=== PATIENT | male | born 1940 | race Two or more races ===

== ENCOUNTER 2019-06-02 09:35 | Emergency (ER) | payer SELFPAY ==
[2019-06-02 12:07] VITALS: BP 127/37
== END 2019-06-02 14:18 | disposition home or self-care (01) ==
LOC: EDBD 09:35 → EDUNIT# 09:35 → ER 09:43
DX: S51.812A Laceration without foreign body of left forearm, initial encounter (principal); S00.93XA Contusion of unspecified part of head, initial encounter; F03.90 Unspecified dementia, unspecified severity, without behavioral disturbance, psychotic disturbance, mood disturbance, and anxiety; W19.XXXA Unspecified fall, initial encounter; Y93.89 Activity, other specified; Y92.89 Other specified places as the place of occurrence of the external cause; Y99.8 Other external cause status; E11.9 Type 2 diabetes mellitus without complications; E78.5 Hyperlipidemia, unspecified; I10 Essential (primary) hypertension
CPT/HCPCS: 70450; 73090; 73120

== ENCOUNTER 2019-09-08 20:36 | Emergency (ER) | payer OTHER ==
[~2019-09-08] VITALS: Ht 185.4 cm; Wt 108.9 kg
[2019-09-08 21:22] LABS: Basophils # (auto) 0 uL; Basophils % (auto) 0.4 % (0.0-2.0); Eosinophils # (auto) 0.3 uL; Eosinophils % (auto) 3.9 % (0.0-7.0); Hemoglobin 13.7 g/dL (13.5-17.5); Lymphocytes # (auto) 0.7 uL; Lymphocytes % (auto) 7.7 % (10.0-50.0); Mean Corpuscular Hemoglobin 31.1 pg (28.0-32.0); Mean Corpuscular Hgb Conc. 33.4 g/dL (32.0-36.0); Mean Corpuscular Volume 93.3 fL (80.0-100.0); Monocytes # (auto) 0.6 uL; Monocytes % (auto) 6.8 % (0.0-12.0); Neutrophils % (auto) 81.2 % (37.0-80.0); Nucleated Red Blood Cells % 0.1 %; Platelet Count (auto) 128 10^3/uL (140-450); Red Blood Cells 4.39 10^6/uL (4.5-5.90); Red Cell Distribution Width 14.6 % (11.8-14.3); White Blood Cell 8.6 10^3/uL (4.4-10.8)
[2019-09-08 21:37] LABS: INR 1.02 (0.9-1.15); Partial Thromboplastin Time 28.5 sec (23.64-32.05)
[2019-09-08 21:42] LABS: Albumin 3.1 g/dL (3.4-5.0); Anion Gap 6 (5-15); BUN/Creatinine Ratio 16.9; Blood Urea Nitrogen 30 mg/dL (7-18); Calcium 9.2 mg/dL (8.5-10.1); Carbon Dioxide 26 mmol/L (21-32); Chloride 107 mmol/L (98-107); GFR African American 48 mL/min; GFR Non-African American 39 mL/min; Glucose 131 mg/dL (74-106); Potassium 4.8 mmol/L (3.5-5.1); Sodium 139 mmol/L (136-145)
[2019-09-08 21:47] LABS: Alanine Aminotransferase 38 U/L (16-61); Alkaline Phosphatase 98 U/L (45-117); Aspartate Aminotransferase 108 U/L (15-37); Bilirubin, Total 0.5 mg/dL (0.2-1.0); Total Protein 7.5 g/dL (6.4-8.2)
[2019-09-08 23:03] VITALS: BP 101/53
[2019-09-09] MEDS ORDERED: LORazepam 2MG/ML-1ML VIAL IM ONE (03:45)
== END 2019-09-09 04:52 | disposition home or self-care (01) ==
LOC: EDBD 20:36 → ER 20:36
DX: S70.02XA Contusion of left hip, initial encounter (principal); S70.01XA Contusion of right hip, initial encounter; E11.9 Type 2 diabetes mellitus without complications; E78.5 Hyperlipidemia, unspecified; I10 Essential (primary) hypertension; R93.0 Abnormal findings on diagnostic imaging of skull and head, not elsewhere classified; Z95.1 Presence of aortocoronary bypass graft; W01.0XXA Fall on same level from slipping, tripping and stumbling without subsequent striking against object, initial encounter; Y93.89 Activity, other specified; Y92.89 Other specified places as the place of occurrence of the external cause; Y99.8 Other external cause status
CPT/HCPCS: 36415; 70450; 71045; 72125; 73502; 80053; 84484; 85025; 85610; 85730; 96372; 99284; J2060

== ENCOUNTER 2021-01-03 09:36 | Inpatient (IN) | payer OTHER ==
[2021-01-03] VITALS (7 sets, daily range): BP systolic 50–106; BP diastolic 15–60
[~2021-01-03] VITALS: Ht 175.3 cm; Wt 86.2 kg
[2021-01-03] MEDS ORDERED: MIDAZOLAM DRIP 50 mg/50mL 50 ML IV ONE (09:37)
[2021-01-03] MEDS ORDERED: ETOMIDATE (2MG/ML) 20ML VIAL IV ONE ×2 (09:37→10:00)
[2021-01-03] MEDS ORDERED: SUCCINYLCHOLINE CHLORIDE 20 MG/ML 10ML VIAL IV ONE ×2 (09:38→10:00)
[2021-01-03] MEDS ORDERED: NOREPINEPHRINE 8 MG/250ML KIT 250 ML IV ONE ×2 (09:38→09:46)
[2021-01-03] MEDS: MIDAZOLAM DRIP 50 mg/50mL 50 ML IV SCH ×2 (09:49→20:00)
[2021-01-03] MEDS ORDERED: NOREPINEPHRINE 8 MG/250ML KIT 250 ML IV SCH (10:00)
[2021-01-03] MEDS ORDERED: PROPOFOL 100 ML IV ONE (10:05)
[2021-01-03] MEDS ORDERED: PROPOFOL 100 ML IV SCH (10:15)
[2021-01-03] MEDS ORDERED: ACETAMINOPHEN 650 mg PER 20.3 mL UD GT ONE (10:20)
[2021-01-03 10:27] LABS: Lactic Acid w/Reflex 4.7 mmol/L (0.4-2.0)
[2021-01-03] MEDS ORDERED: CLINDAMYCIN 600MG IV 50 ML IV ONE (10:30)
[2021-01-03] MEDS ORDERED: cefTRIAXone 1GM/50ML D5W 50 ML IV ONE (10:30)
[2021-01-03] MEDS ORDERED: fentaNYL Drip 2500mCg/250mlNS 250 ML IV ONE (10:36)
[2021-01-03 10:40] LABS: Basophils # (auto) 0 10 ^3/uL (0-0.2); Basophils % (auto) 0.1 % (0.0-2.0); Eosinophils # (auto) 0 10 ^3/uL (0-0.8); Hematocrit 41.4 % (41.0-53.0); Hemoglobin 13.6 g/dL (13.5-17.5); Lymphocytes # (auto) 0.9 10 ^3/uL (0.4-5.4); Lymphocytes % (auto) 4.3 % (10.0-50.0); Mean Corpuscular Hemoglobin 29.3 pg (28.0-32.0); Mean Corpuscular Hgb Conc. 32.8 g/dL (32.0-36.0); Mean Corpuscular Volume 89.4 fL (80.0-100.0); Monocytes # (auto) 1.5 10 ^3/uL (0-1.3); Monocytes % (auto) 7.1 % (0.0-12.0); Neutrophils # (auto) 18.7 10 ^3/uL (1.6-8.6); Neutrophils % (auto) 88.5 % (37.0-80.0); Platelet Count (auto) 350 10^3/uL (140-450); Red Blood Cells 4.63 10^6/uL (4.5-5.90); Red Cell Distribution Width 15.8 % (11.8-14.3); White Blood Cell 21.1 10^3/uL (4.4-10.8)
[2021-01-03 10:43] LABS: Albumin 2.8 g/dL (3.4-5.0); Anion Gap 11 (5-15); Calcium 9.4 mg/dL (8.5-10.1); Carbon Dioxide 17 mmol/L (21-32); Chloride 102 mmol/L (98-107); Sodium 130 mmol/L (136-145)
[2021-01-03] MEDS ORDERED: fentaNYL Drip 2500mCg/250mlNS 250 ML IV SCH (10:45)
[2021-01-03 10:49] LABS: INR 1.08 (0.9-1.15); Partial Thromboplastin Time 27.5 sec (23.0-31.2)
[2021-01-03] MEDS ORDERED: ACETAMINOPHEN 650 mg PER 20.3 mL UD ONE (10:49)
[2021-01-03 10:51] LABS: Alanine Aminotransferase 32 U/L (16-61); Alkaline Phosphatase 94 U/L (45-117); Aspartate Aminotransferase 33 U/L (15-37); BUN/Creatinine Ratio 19.1; Bilirubin, Total 0.8 mg/dL (0.2-1.0); Blood Alcohol < 3.0 mg/dL (0-5); GFR African American 16 mL/min; GFR Non-African American 14 mL/min; Glucose 312 mg/dL (74-106); Magnesium 3.2 mg/dL (1.6-2.6); Total Protein 7.8 g/dL (6.4-8.2)
[2021-01-03] MEDS ORDERED: PHENYLEPHRINE IV 250 ML IV ONE ×2 (10:57→11:15)
[2021-01-03] MEDS ORDERED: VASOPRESSIN 50 UNITS in D5W 5% 247.5 ML IV SCH (11:15)
[2021-01-03 11:24] LABS: Blood Urea Nitrogen 86 mg/dL (7-18); Potassium 6.7 mmol/L (3.5-5.1)
[2021-01-03] MEDS ORDERED: SODIUM ZIRCONIUM CYCL 10 GM PAK PO ONE (12:00)
[2021-01-03] MEDS ORDERED: InsuLIN REG 1unit/0.01ml Soln (100units/ml) IV ONE (12:00)
[2021-01-03] MEDS ORDERED: ALBUTEROL SULF 2.5 MG/0.5ML(0.5%) NEB SOLN NEB ONE (12:00)
[2021-01-03] MEDS ORDERED: CALCIUM GLUC 1,000mg/50ml-NS 50 ML IV ONE (12:00)
[2021-01-03] MEDS ORDERED: FUROSEMIDE 20 MG/2 ML VIAL IV ONE (12:00)
[2021-01-03] MEDS ORDERED: DEXTROSE (50%) 50ML SYRG IV ONE (12:00)
[2021-01-03] MEDS ORDERED: SODIUM BICARBONATE 50ML VIAL 150 ML in D5W 5% 1,000 ML IV ONE (12:15)
[2021-01-03] MEDS ORDERED: SODIUM BICARBONATE 8.4 % INJ 50ML VIAL IV ONE (12:30)
== END 2021-01-03 21:37 | DRG 871 ==
LOC: ER 09:36 → EDBD 09:36 → TELE 16:10
PROVIDERS: ADMIT Internal Medicine; ATTEND Internal Medicine
PROC: 5A1935Z Respiratory Ventilation, Less than 24 Consecutive Hours (ICD-10-PCS; principal; 2021-01-03)
PROC: 0BH17EZ Insertion of Endotracheal Airway into Trachea, Via Natural or Artificial Opening (ICD-10-PCS; 2021-01-03)
PROC: 02HV33Z Insertion of Infusion Device into Superior Vena Cava, Percutaneous Approach (ICD-10-PCS; 2021-01-03)
DX: A41.9 Sepsis, unspecified organism (principal); R65.21 Severe sepsis with septic shock; J18.9 Pneumonia, unspecified organism; J96.01 Acute respiratory failure with hypoxia; G93.41 Metabolic encephalopathy; E87.4 Mixed disorder of acid-base balance; E87.1 Hypo-osmolality and hyponatremia; N17.9 Acute kidney failure, unspecified; N18.4 Chronic kidney disease, stage 4 (severe); Z99.11 Dependence on respirator [ventilator] status; I13.0 Hypertensive heart and chronic kidney disease with heart failure and stage 1 through stage 4 chronic kidney disease, or unspecified chronic kidney disease; E11.22 Type 2 diabetes mellitus with diabetic chronic kidney disease; E78.5 Hyperlipidemia, unspecified; Z20.822 Contact with and (suspected) exposure to COVID-19; E87.5 Hyperkalemia; F03.90 Unspecified dementia, unspecified severity, without behavioral disturbance, psychotic disturbance, mood disturbance, and anxiety; I50.9 Heart failure, unspecified; I25.10 Atherosclerotic heart disease of native coronary artery without angina pectoris; Z95.1 Presence of aortocoronary bypass graft
CPT/HCPCS: 31500; 36415; 36556; 36600; 71045; 80053; 80320; 82805; 83605; 83735; 84484; 85025; 85610; 85730; 87040; 87070; 87205; 87426; 93005; 94002; 94640; 96365; 96367; 99291; G0378; J0330; J0696; J1815; J2250; J2704; J3490; J7060